=== PATIENT | female | born 1990 | race Caucasian/White ===

== ENCOUNTER 2017-03-12 19:54 | Emergency (ER) | payer MEDICARE, MEDICAID ==
[~2017-03-12] VITALS: Ht 157.5 cm; Wt 60.0 kg
[~2017-03-12 19:54] MED LIST: FOLI1CAP7 PO; FOLI1TAB16 PO; FURO-150 PO; HYDR-3965 PO; NEPHC PO; ONDA4TAB12 PO; ONDA4TAB6 PO; PANT40TA4 PO; SERT25TA PO; SEVE800T8 PO; SODI650T29 PO
[2017-03-12 20:43] LABS: BASOPHILS # (AUTO) 0.1 X10'3 (0-0.2); BASOPHILS % (AUTO) 0.8 % (0-1); EOSINOPHILS # (AUTO) 0.3 X10'3 (0-0.9); EOSINOPHILS % (AUTO) 2.4 % (0-6); HEMATOCRIT 40.4 % (35.0-45.0); HEMOGLOBIN 13.3 g/dl (12.0-16.0); LYMPHOCYTES # (AUTO) 2.3 X10'3 (1.1-4.8); LYMPHOCYTES % (AUTO) 19.5 % (21-51); MEAN CORPUSCULAR HEMOGLOBIN 32.5 PG (27.0-31.0); MEAN CORPUSCULAR VOLUME 98.5 FL (78-98); MONOCYTES # (AUTO) 0.5 X10'3 (0-0.9); MONOCYTES % (AUTO) 4.2 % (2-12); NEUTROPHILS # (AUTO) 8.6 X10'3 (1.8-7.7); NEUTROPHILS % (AUTO) 73.1 % (42-75); PLATELET COUNT 195 X10'3 (140-440); WHITE BLOOD COUNT 11.8 X10'3 (4.5-11.0)
[2017-03-12 20:44] LABS: CLARITY,URINE CLEAR (Clear); COLOR,URINE YELLOW (Yellow); GLUCOSE, URINE NEGATIVE (Neg); KETONES,URINE NEGATIVE (Neg); LEUKOCYTE ESTERASE ,URINE NEGATIVE (Neg); NITRITES, URINE NEGATIVE (Neg); OCCULT BLOOD,URINE MODERATE (Neg); PROTEIN,URINE 100 mg/dl (Neg); UROBILINOGEN,URINE 0.2 E.U/dL (0.2-1.0)
[2017-03-12 20:47] LABS: UA COLLECTION TYPE CLN CATCH MIDSTREAM
[2017-03-12 20:53] LABS: PROTHROMBIN TIME 10.3 SECONDS (9.0-12.0)
[2017-03-12 20:59] LABS: ANION GAP 14 (8-16); CHLORIDE 107 MMOL/L (99-107); GLUCOSE 90 MG/DL (70-104); POTASSIUM 4.3 MMOL/L (3.5-5.1); SODIUM 143 MMOL/L (135-145); TOTAL CARBON DIOXIDE 21.9 MMOL/L (24-32)
[2017-03-12 20:59] LABS: BACTERIA,URINE FEW /HPF (Neg); RBC,URINE 0-2 /HPF (0-2); SQUAMOUS EPITHELIAL CELL,UR FEW /LPF (FEW); WBC,URINE NONE SEEN /HPF (0-4)
[2017-03-12 21:00] LABS: ALANINE AMINOTRANSFERASE 34 U/L (12-78); ALKALINE PHOSPHATASE 125 IU/L (46-116); ASPARTATE AMINO TRANSFERASE 19 U/L (10-37); BILIRUBIN,TOTAL 0.3 MG/DL (0.1-1.0); BLOOD UREA NITROGEN 66 MG/DL (7-18); BUN/CREATININE RATIO 9.9 (6.6-38.0); CALCIUM 8.8 MG/DL (8.5-10.1); CREATININE 6.68 MG/DL (0.40-0.90); eGFR 7 ML/MIN
[2017-03-12] MEDS ORDERED: HYDR-3965 PO (21:08)
[2017-03-12] MEDS ORDERED: LORazepam 1 MG tablet PO ONE (21:15)
[2017-03-12] MEDS ORDERED: HYDROcodone/acetaminophen 5mg/325mg tablet PO ONE (21:15)
[2017-03-12] MEDS ORDERED: ONDA4TAB12 PO (22:14)
[2017-03-12] MEDS ORDERED: DICY10CA88 PO (22:14)
[2017-03-12 22:38] VITALS: BP 139/97
== END 2017-03-12 22:39 | disposition home or self-care (01) ==
LOC: ER 19:54
DX: R10.30 Lower abdominal pain, unspecified (principal); I10 Essential (primary) hypertension; Z90.49 Acquired absence of other specified parts of digestive tract; Z56.0 Unemployment, unspecified; Z98.890 Other specified postprocedural states; Z79.899 Other long term (current) drug therapy
CPT/HCPCS: 36415; 74176; 80053; 81001; 85025; 85610; 99285

== ENCOUNTER 2017-04-20 15:42 | Emergency (ER) | payer MEDICARE, MEDICAID | END 2017-04-20 16:48 | disposition left against medical advice (07) | LOC: ER 15:42 | DX: R51 Headache (principal); Z53.21 Procedure and treatment not carried out due to patient leaving prior to being seen by health care provider ==

== ENCOUNTER 2017-04-25 19:21 | Emergency (ER) | payer MEDICARE, MEDICAID ==
[~2017-04-25] VITALS: Ht 157.5 cm; Wt 61.9 kg
[2017-04-25 19:58] LABS: CLARITY,URINE SLIGHTLY CLOUDY (Clear); COLOR,URINE YELLOW (Yellow); GLUCOSE, URINE NEGATIVE (Neg); KETONES,URINE NEGATIVE (Neg); LEUKOCYTE ESTERASE ,URINE TRACE (Neg); NITRITES, URINE NEGATIVE (Neg); OCCULT BLOOD,URINE LARGE (Neg); PH,URINE 8.5 (4.8-8.0); PROTEIN,URINE >=300 mg/dl (Neg); UROBILINOGEN,URINE 0.2 E.U/dL (0.2-1.0)
[2017-04-25 19:59] LABS: URINE HCG NEGATIVE (NEG)
[2017-04-25 20:02] LABS: UA COLLECTION TYPE CLN CATCH MIDSTREAM
[2017-04-25] MEDS ORDERED: ondansetron 4mg rapidly disintigrating tab PO ONE (20:05)
[2017-04-25] MEDS ORDERED: morphine 4 MG/ML inj SYRINge IM ONE ×2 (20:05→22:00)
[2017-04-25 20:13] LABS: BASOPHILS % (AUTO) 0.5 % (0-1); EOSINOPHILS # (AUTO) 0.2 X10'3 (0-0.9); EOSINOPHILS % (AUTO) 2.2 % (0-6); HEMATOCRIT 33.1 % (35.0-45.0); HEMOGLOBIN 11.4 g/dl (12.0-16.0); LYMPHOCYTES # (AUTO) 1.9 X10'3 (1.1-4.8); LYMPHOCYTES % (AUTO) 23.4 % (21-51); MEAN CORPUSCULAR HEMOGLOBIN 32.3 PG (27.0-31.0); MEAN CORPUSCULAR HGB CONC 34.4 % (33.0-36.5); MEAN CORPUSCULAR VOLUME 93.7 FL (78-98); MEAN PLATELET VOLUME 8.1 FL (7.4-10.4); MONOCYTES # (AUTO) 0.6 X10'3 (0-0.9); MONOCYTES % (AUTO) 7.8 % (2-12); NEUTROPHILS # (AUTO) 5.4 X10'3 (1.8-7.7); NEUTROPHILS % (AUTO) 66.1 % (42-75); PLATELET COUNT 201 X10'3 (140-440); RED BLOOD COUNT 3.54 X10'6 (4.20-5.60); RED CELL DISTRIBUTION WIDTH 14.3 % (11.5-14.5); WHITE BLOOD COUNT 8.2 X10'3 (4.5-11.0)
[2017-04-25 20:17] LABS: RBC,URINE TNTC /HPF (0-2); SQUAMOUS EPITHELIAL CELL,UR MODERATE /LPF (FEW); TRIPLE PHOSPHATE CRYST 1+ /HPF (NEGATIVE)
[2017-04-25 20:18] LABS: BACTERIA,URINE FEW /HPF (Neg)
[2017-04-25 20:26] LABS: INR 0.9 INR; PROTHROMBIN TIME 9.8 SECONDS (9.0-12.0)
[2017-04-25 20:44] LABS: ALANINE AMINOTRANSFERASE 37 U/L (12-78); ALBUMIN 3.4 G/DL (3.4-5.0); ALBUMIN/GLOBULIN RATIO 0.8 (1.1-1.5); ALKALINE PHOSPHATASE 82 IU/L (46-116); ANION GAP 12 (8-16); ASPARTATE AMINO TRANSFERASE 21 U/L (10-37); BILIRUBIN,TOTAL 0.5 MG/DL (0.1-1.0); BLOOD UREA NITROGEN 32 MG/DL (7-18); CALCIUM 9.1 MG/DL (8.5-10.1); CHLORIDE 98 MMOL/L (99-107); CREATININE 6.44 MG/DL (0.40-0.90); GLUCOSE 91 MG/DL (70-104); LIPASE 187 U/L (73-393); POTASSIUM 4.1 MMOL/L (3.5-5.1); SODIUM 140 MMOL/L (135-145); TOTAL PROTEIN 7.9 G/DL (6.4-8.2); eGFR 8 ML/MIN
[2017-04-25] MEDS ORDERED: HYDROmorphone 1 mg/ml syringe IM ONE (21:40)
[2017-04-25] MEDS ORDERED: HYDR-3965 PO (21:48)
[2017-04-25] MEDS ORDERED: CEPH250T PO (21:49)
[2017-04-25 22:12] VITALS: BP 137/67
== END 2017-04-25 22:16 | disposition home or self-care (01) ==
LOC: ER 19:21
DX: N83.201 Unspecified ovarian cyst, right side (principal); N39.0 Urinary tract infection, site not specified; I10 Essential (primary) hypertension; Z98.51 Tubal ligation status; Z56.0 Unemployment, unspecified; Z79.899 Other long term (current) drug therapy
CPT/HCPCS: 36415; 74176; 76856; 80053; 81001; 81025; 83605; 83690; 85025; 85610; 87088; 96372; 99285; J2270

== ENCOUNTER 2020-08-22 21:12 | Emergency (ER) | payer MEDICAID, MEDICARE ==
[~2020-08-22] VITALS: Ht 157.5 cm; Wt 54.2 kg
[~2020-08-22 21:12] MED LIST changes: +ONDA8TAB9 PO; -PANT40TA4 PO; +PANT40TA54 PO
[2020-08-22 22:32] LABS: BASOPHILS # (AUTO) 0.1 X10'3 (0-0.2); BASOPHILS % (AUTO) 0.6 % (0-1); EOSINOPHILS # (AUTO) 0.1 X10'3 (0-0.9); EOSINOPHILS % (AUTO) 1.2 % (0-6); HEMATOCRIT 30.2 % (35.0-45.0); HEMOGLOBIN 9.9 g/dl (12.0-16.0); LYMPHOCYTES # (AUTO) 0.9 X10'3 (1.1-4.8); LYMPHOCYTES % (AUTO) 7.4 % (21-51); MEAN CORPUSCULAR HEMOGLOBIN 28.4 PG (27.0-31.0); MEAN CORPUSCULAR HGB CONC 32.9 g/dL (33.0-36.5); MEAN CORPUSCULAR VOLUME 86.5 FL (78-98); MEAN PLATELET VOLUME 8.9 FL (7.4-10.4); MONOCYTES # (AUTO) 1.5 X10'3 (0-0.9); MONOCYTES % (AUTO) 11.8 % (2-12); NEUTROPHILS # (AUTO) 9.7 X10'3 (1.8-7.7); PLATELET COUNT 252 X10'3 (140-440); RED BLOOD COUNT 3.49 X10'6 (4.20-5.60); RED CELL DISTRIBUTION WIDTH 14.7 % (11.5-14.5); WHITE BLOOD COUNT 12.3 X10'3 (4.5-11.0)
[2020-08-22 22:43] LABS: ALANINE AMINOTRANSFERASE 17 U/L (12-78); ALBUMIN/GLOBULIN RATIO 0.6 (1.1-1.5); ALKALINE PHOSPHATASE 68 IU/L (46-116); ANION GAP 6 (8-16); ASPARTATE AMINO TRANSFERASE 11 U/L (10-37); BILIRUBIN,TOTAL 1.2 MG/DL (0.1-1.0); BLOOD UREA NITROGEN 16 MG/DL (7-18); BUN/CREATININE RATIO 11.8 (6.6-38.0); CALCIUM 9.2 MG/DL (8.5-10.1); CHLORIDE 101 MMOL/L (99-107); CREATININE 1.36 MG/DL (0.40-0.90); GLUCOSE 98 MG/DL (70-104); POTASSIUM 3.9 MMOL/L (3.5-5.1); SODIUM 135 MMOL/L (135-145); TOTAL CARBON DIOXIDE 27.9 MMOL/L (24-32); TOTAL PROTEIN 7.8 G/DL (6.4-8.2); eGFR 45 ML/MIN
[2020-08-22 22:49] LABS: CLARITY,URINE CLOUDY (Clear); COLOR,URINE YELLOW (Yellow); GLUCOSE, URINE NEGATIVE (Neg); KETONES,URINE NEGATIVE (Neg); LEUKOCYTE ESTERASE ,URINE LARGE (Neg); NITRITES, URINE POSITIVE (Neg); OCCULT BLOOD,URINE TRACE-INTACT (Neg); PH,URINE 5.5 (4.8-8.0); PROTEIN,URINE NEGATIVE (Neg); UROBILINOGEN,URINE 0.2 E.U/dL (0.2-1.0)
[2020-08-22 22:53] LABS: UA COLLECTION TYPE CLN CATCH MIDSTREAM
[2020-08-22 22:57] LABS: BACTERIA,URINE 4+ /HPF (Neg); RBC,URINE 0-2 /HPF (0-2); SQUAMOUS EPITHELIAL CELL,UR MODERATE /LPF (FEW); WBC,URINE TNTC /HPF (0-4)
[2020-08-22] MEDS ORDERED: CefTRIAXone 2gm/D5W 50ml BAG 50 ML IV ONE (23:00)
[2020-08-22] MEDS ORDERED: CEPH250T PO (23:02)
[2020-08-22 23:20] VITALS: BP 112/57
== END 2020-08-22 23:21 | disposition home or self-care (01) ==
LOC: ER 21:13
DX: N39.0 Urinary tract infection, site not specified (principal); Z20.822 Contact with and (suspected) exposure to COVID-19; R53.1 Weakness; R50.9 Fever, unspecified; I10 Essential (primary) hypertension; Z98.51 Tubal ligation status; Z98.890 Other specified postprocedural states; Z56.0 Unemployment, unspecified; Z79.2 Long term (current) use of antibiotics; Z79.899 Other long term (current) drug therapy
CPT/HCPCS: 36415; 71045; 80053; 81001; 83605; 84145; 85025; 87040; 87077; 87088; 87186; 87635; 96374; 99284; C9803; J0696

== ENCOUNTER 2020-09-20 12:41 | Emergency (ER) | payer MEDICARE ==
[~2020-09-20] VITALS: Ht 157.5 cm; Wt 51.1 kg
[2020-09-20 12:48] VITALS: BP 117/73
[2020-09-20] MEDS ORDERED: CefTRIAXone 1000mg IM Kit (w/lidocaine diluent) IM STA (14:11)
[2020-09-20] MEDS ORDERED: azithromycin 250mg tablet PO ONE (14:15)
[2020-09-20] MEDS ORDERED: MET0.75G TP (14:19)
[2020-09-20] MEDS ORDERED: METR500T PO (14:19)
== END 2020-09-20 14:59 | disposition home or self-care (01) ==
LOC: ER 12:42
DX: A64 Unspecified sexually transmitted disease (principal); N76.0 Acute vaginitis; R30.0 Dysuria; I10 Essential (primary) hypertension; Z98.51 Tubal ligation status; Z98.890 Other specified postprocedural states; Z95.1 Presence of aortocoronary bypass graft; Z56.0 Unemployment, unspecified; Z79.899 Other long term (current) drug therapy; Z79.2 Long term (current) use of antibiotics
CPT/HCPCS: 36415; 86592; 87491; 87591; 96372; 99283; J0696

== ENCOUNTER 2020-10-19 12:06 | Emergency (ER) | payer MEDICARE ==
[~2020-10-19] VITALS: Ht 157.5 cm; Wt 52.7 kg
[2020-10-19 12:48] VITALS: BP 121/85
[2020-10-19 13:04] LABS: URINE HCG NEGATIVE (NEG)
[2020-10-19 13:08] LABS: CLARITY,URINE SLIGHTLY CLOUDY (Clear); COLOR,URINE STRAW (Yellow); GLUCOSE, URINE NEGATIVE (Neg); KETONES,URINE NEGATIVE (Neg); LEUKOCYTE ESTERASE ,URINE LARGE (Neg); NITRITES, URINE NEGATIVE (Neg); OCCULT BLOOD,URINE SMALL (Neg); PROTEIN,URINE 30 mg/dl (Neg); UROBILINOGEN,URINE 0.2 E.U/dL (0.2-1.0)
[2020-10-19 13:09] LABS: UA COLLECTION TYPE CLN CATCH MIDSTREAM
[2020-10-19 13:18] LABS: BACTERIA,URINE 3+ /HPF (Neg); MUCUS STRANDS FEW /LPF (Neg); RENAL CELLS, URINE FEW /HPF; SQUAMOUS EPITHELIAL CELL,UR MANY /LPF (FEW); TRICHOMONAS,URINE FEW /HPF (NEGATIVE); WBC,URINE TNTC /HPF (0-4)
[2020-10-19 14:33] LABS: BASOPHILS # (AUTO) 0.1 X10'3 (0-0.2); BASOPHILS % (AUTO) 0.7 % (0-1); EOSINOPHILS # (AUTO) 0.5 X10'3 (0-0.9); EOSINOPHILS % (AUTO) 4.9 % (0-6); HEMATOCRIT 27.3 % (35.0-45.0); LYMPHOCYTES % (AUTO) 9.1 % (21-51); MEAN CORPUSCULAR HEMOGLOBIN 28.6 PG (27.0-31.0); MEAN CORPUSCULAR HGB CONC 33.1 g/dL (33.0-36.5); MEAN CORPUSCULAR VOLUME 86.4 FL (78-98); MEAN PLATELET VOLUME 7.1 FL (7.4-10.4); MONOCYTES # (AUTO) 0.8 X10'3 (0-0.9); MONOCYTES % (AUTO) 7.2 % (2-12); NEUTROPHILS # (AUTO) 8.3 X10'3 (1.8-7.7); NEUTROPHILS % (AUTO) 78.1 % (42-75); PLATELET COUNT 311 X10'3 (140-440); RED BLOOD COUNT 3.16 X10'6 (4.20-5.60); RED CELL DISTRIBUTION WIDTH 14.8 % (11.5-14.5); WHITE BLOOD COUNT 10.7 X10'3 (4.5-11.0)
[2020-10-19 14:54] LABS: ALANINE AMINOTRANSFERASE 21 U/L (12-78); ALBUMIN/GLOBULIN RATIO 0.6 (1.1-1.5); ALKALINE PHOSPHATASE 90 IU/L (46-116); ANION GAP 10 (8-16); ASPARTATE AMINO TRANSFERASE 17 U/L (10-37); BILIRUBIN,TOTAL 0.4 MG/DL (0.1-1.0); BLOOD UREA NITROGEN 43 MG/DL (7-18); BUN/CREATININE RATIO 10.5 (6.6-38.0); CHLORIDE 107 MMOL/L (99-107); GLUCOSE 76 MG/DL (70-104); POTASSIUM 4.4 MMOL/L (3.5-5.1); SODIUM 139 MMOL/L (135-145); TOTAL CARBON DIOXIDE 22.1 MMOL/L (24-32); TOTAL PROTEIN 8.3 G/DL (6.4-8.2); eGFR 13 ML/MIN
[2020-10-19] MEDS ORDERED: CefTRIAXone 1000mg IM Kit (w/lidocaine diluent) IM STA (15:48)
[2020-10-19] MEDS ORDERED: azithromycin 250mg tablet PO ONE (15:50)
[2020-10-19] MEDS ORDERED: MET0.75G TP (15:58)
[2020-10-19] MEDS ORDERED: METR500T PO (15:58)
[2020-10-19] MEDS ORDERED: NITR100C6 PO (15:58)
[2020-10-19] MEDS ORDERED: ONDA4TAB12 PO (16:19)
== END 2020-10-19 16:30 | disposition home or self-care (01) ==
LOC: ER 12:07
DX: U07.1 COVID-19 (principal); R11.2 Nausea with vomiting, unspecified; N39.0 Urinary tract infection, site not specified; I10 Essential (primary) hypertension; N18.6 End stage renal disease; Z99.2 Dependence on renal dialysis; Z90.49 Acquired absence of other specified parts of digestive tract; Z98.51 Tubal ligation status; Z56.0 Unemployment, unspecified; Z90.5 Acquired absence of kidney
CPT/HCPCS: 36415; 80053; 81001; 81025; 85025; 87491; 87591; 87635; 96372; 99283; C9803; J0696

== ENCOUNTER 2021-01-16 08:30 | Outpatient (CLI) | payer MEDICARE ==
[~2021-01-16 08:30] MED LIST changes: +BUPR1FIL20 SL; -FOLI1CAP7 PO; -FOLI1TAB16 PO; -FURO-150 PO; -HYDR-3965 PO; +MYCO180T PO; -NEPHC PO; -ONDA4TAB12 PO; -ONDA4TAB6 PO; -ONDA8TAB9 PO; -PANT40TA54 PO; +PRED5TAB49 PO; -SERT25TA PO; -SEVE800T8 PO; -SODI650T29 PO; +TACR1CAP PO
== END 2021-01-16 23:59 | disposition home or self-care (01) ==
LOC: 64 CT 08:30
PROVIDERS: ATTEND Family Medicine
DX: N26.1 Atrophy of kidney (terminal) (principal); K59.00 Constipation, unspecified; R91.1 Solitary pulmonary nodule
CPT/HCPCS: 74176

== ENCOUNTER 2021-06-07 20:37 | Emergency (ER) | payer MEDICARE, MEDICAID ==
[~2021-06-07] VITALS: Ht 157.5 cm; Wt 53.3 kg
[2021-06-07 21:22] LABS: URINE HCG NEGATIVE (NEG)
[2021-06-07 21:32] LABS: BASOPHILS # (AUTO) 0.1 X10'3 (0-0.2); BASOPHILS % (AUTO) 0.5 % (0-1); EOSINOPHILS # (AUTO) 1.3 X10'3 (0-0.9); EOSINOPHILS % (AUTO) 11.7 % (0-6); HEMATOCRIT 32.9 % (35.0-45.0); HEMOGLOBIN 11.3 g/dl (12.0-16.0); LYMPHOCYTES # (AUTO) 0.9 X10'3 (1.1-4.8); LYMPHOCYTES % (AUTO) 8.2 % (21-51); MEAN CORPUSCULAR HEMOGLOBIN 31.1 PG (27.0-31.0); MEAN CORPUSCULAR HGB CONC 34.2 g/dL (33.0-36.5); MEAN CORPUSCULAR VOLUME 90.9 FL (78-98); MEAN PLATELET VOLUME 6.4 FL (7.4-10.4); MONOCYTES # (AUTO) 1.2 X10'3 (0-0.9); MONOCYTES % (AUTO) 10.6 % (2-12); NEUTROPHILS # (AUTO) 7.5 X10'3 (1.8-7.7); PLATELET COUNT 346 X10'3 (140-440); RED BLOOD COUNT 3.62 X10'6 (4.20-5.60); RED CELL DISTRIBUTION WIDTH 13.6 % (11.5-14.5); WHITE BLOOD COUNT 10.9 X10'3 (4.5-11.0)
[2021-06-07 21:36] LABS: CLARITY,URINE CLOUDY (Clear); COLOR,URINE RED (Yellow); UA COLLECTION TYPE CLN CATCH MIDSTREAM
[2021-06-07 21:38] LABS: BACTERIA,URINE NONE SEEN /HPF (Neg); RBC,URINE TNTC /HPF (0-2); SQUAMOUS EPITHELIAL CELL,UR FEW /LPF (FEW); WBC,URINE 0-4 /HPF (0-4)
[2021-06-07 21:43] LABS: ALANINE AMINOTRANSFERASE 26 U/L (12-78); ALBUMIN/GLOBULIN RATIO 0.5 (1.1-1.5); ALKALINE PHOSPHATASE 93 IU/L (46-116); ANION GAP 10 (8-16); ASPARTATE AMINO TRANSFERASE 20 U/L (10-37); BILIRUBIN,TOTAL 0.4 MG/DL (0.1-1.0); BLOOD UREA NITROGEN 26 MG/DL (7-18); BUN/CREATININE RATIO 8.2 (6.6-38.0); CALCIUM 9.2 MG/DL (8.5-10.1); CHLORIDE 97 MMOL/L (99-107); CREATININE 3.17 MG/DL (0.40-0.90); GLUCOSE 84 MG/DL (70-104); LIPASE 100 U/L (73-393); POTASSIUM 3.8 MMOL/L (3.5-5.1); SODIUM 142 MMOL/L (135-145); TOTAL CARBON DIOXIDE 34.6 MMOL/L (24-32); TOTAL PROTEIN 8.8 G/DL (6.4-8.2); eGFR 17 ML/MIN
[2021-06-07 21:57] VITALS: BP 88/52
== END 2021-06-07 22:04 | disposition home or self-care (01) ==
LOC: ER 20:38
DX: R10.30 Lower abdominal pain, unspecified (principal); R31.9 Hematuria, unspecified; R42 Dizziness and giddiness; I12.0 Hypertensive chronic kidney disease with stage 5 chronic kidney disease or end stage renal disease; N18.6 End stage renal disease; Z99.2 Dependence on renal dialysis; Z56.0 Unemployment, unspecified; Z95.5 Presence of coronary angioplasty implant and graft; Z90.49 Acquired absence of other specified parts of digestive tract; Z98.51 Tubal ligation status; Z79.899 Other long term (current) drug therapy
CPT/HCPCS: 36415; 80053; 81001; 81025; 83690; 85025; 99283; 99285

== ENCOUNTER 2021-06-24 11:18 | Emergency (ER) | payer MEDICARE, MEDICAID ==
[~2021-06-24] VITALS: Ht 157.5 cm; Wt 54.5 kg
[2021-06-24 14:51] LABS: CLARITY,URINE BLOODY (Clear); COLOR,URINE RED (Yellow); UA COLLECTION TYPE NON-SPECIFIED
[2021-06-24 14:54] LABS: URINE HCG NEGATIVE (NEG)
[2021-06-24 14:57] LABS: RBC,URINE TNTC /HPF (0-2); SQUAMOUS EPITHELIAL CELL,UR NONE SEEN /LPF (FEW)
[2021-06-24 14:58] LABS: BACTERIA,URINE FEW /HPF (Neg)
[2021-06-24 15:04] LABS: BASOPHILS % (AUTO) 0.2 % (0-1); EOSINOPHILS % (AUTO) 0.3 % (0-6); HEMATOCRIT 29.7 % (35.0-45.0); HEMOGLOBIN 9.1 g/dl (12.0-16.0); LYMPHOCYTES # (AUTO) 0.5 X10'3 (1.1-4.8); LYMPHOCYTES % (AUTO) 4.6 % (21-51); MEAN CORPUSCULAR HEMOGLOBIN 29.1 PG (27.0-31.0); MEAN CORPUSCULAR HGB CONC 30.7 g/dL (33.0-36.5); MEAN CORPUSCULAR VOLUME 94.8 FL (78-98); MEAN PLATELET VOLUME 7.1 FL (7.4-10.4); MONOCYTES # (AUTO) 0.7 X10'3 (0-0.9); MONOCYTES % (AUTO) 6.3 % (2-12); NEUTROPHILS # (AUTO) 9.8 X10'3 (1.8-7.7); NEUTROPHILS % (AUTO) 88.6 % (42-75); PLATELET COUNT 429 X10'3 (140-440); RED BLOOD COUNT 3.13 X10'6 (4.20-5.60); RED CELL DISTRIBUTION WIDTH 14.7 % (11.5-14.5)
[2021-06-24 15:19] LABS: ALANINE AMINOTRANSFERASE 25 U/L (12-78); ALBUMIN 2.5 G/DL (3.4-5.0); ALBUMIN/GLOBULIN RATIO 0.4 (1.1-1.5); ALKALINE PHOSPHATASE 88 IU/L (46-116); ANION GAP 10 (8-16); ASPARTATE AMINO TRANSFERASE 28 U/L (10-37); BILIRUBIN,TOTAL 0.3 MG/DL (0.1-1.0); BLOOD UREA NITROGEN 32 MG/DL (7-18); BUN/CREATININE RATIO 10.6 (6.6-38.0); CALCIUM 8.2 MG/DL (8.5-10.1); CHLORIDE 90 MMOL/L (99-107); CREATININE 3.01 MG/DL (0.40-0.90); GLUCOSE 88 MG/DL (70-104); POTASSIUM 5.2 MMOL/L (3.5-5.1); SODIUM 128 MMOL/L (135-145); TOTAL CARBON DIOXIDE 27.8 MMOL/L (24-32); TOTAL PROTEIN 8.6 G/DL (6.4-8.2); eGFR 18 ML/MIN
--- NOTE | 2021-06-24 17:54 | NUR ---
[facility] CALLED WAITING FOR CALL BACK.
[2021-06-24] MEDS ORDERED: PRED20TA PO (20:33)
[2021-06-24] MEDS ORDERED: CEPH-585 PO (20:33)
[2021-06-24] MEDS ORDERED: methylPREDNISolone sod succ 125mg/2ml vial IV ONE (20:35)
[2021-06-24] MEDS ORDERED: cephalexin 500mg capsule PO ONE (20:35)
[2021-06-24] MEDS ORDERED: dexamethasone sod phosphate 10mg/ml inj IM STA (21:28)
[2021-06-24 21:49] VITALS: BP 145/81
== END 2021-06-24 21:50 | disposition home or self-care (01) ==
LOC: ER 11:19
DX: N39.0 Urinary tract infection, site not specified (principal); R31.9 Hematuria, unspecified; I10 Essential (primary) hypertension; Z98.51 Tubal ligation status; Z98.890 Other specified postprocedural states; Z56.0 Unemployment, unspecified; Z79.2 Long term (current) use of antibiotics; Z79.899 Other long term (current) drug therapy
CPT/HCPCS: 36415; 76770; 80053; 81001; 81025; 85025; 87088; 96372; 99284; J1100

== ENCOUNTER 2021-06-25 18:38 | Inpatient (IN) | payer MEDICARE, MEDICAID ==
[~2021-06-25] VITALS: Ht 157.5 cm; Wt 54.5 kg
[~2021-06-25 18:38] MED LIST changes: +CEPH-585 PO; +PRED20TA PO
[2021-06-25] MEDS ORDERED: methylPREDNISolone sod succ 125mg/2ml vial IV ONE (19:40)
[2021-06-25 20:57] LABS: BASOPHILS % (AUTO) 0.2 % (0-1); EOSINOPHILS % (AUTO) 0 % (0-6); HEMATOCRIT 25.7 % (35.0-45.0); HEMOGLOBIN 8.3 g/dl (12.0-16.0); LYMPHOCYTES # (AUTO) 0.8 X10'3 (1.1-4.8); LYMPHOCYTES % (AUTO) 4.1 % (21-51); MEAN CORPUSCULAR HEMOGLOBIN 29.2 PG (27.0-31.0); MEAN CORPUSCULAR HGB CONC 32.1 g/dL (33.0-36.5); MEAN CORPUSCULAR VOLUME 90.9 FL (78-98); MEAN PLATELET VOLUME 6.5 FL (7.4-10.4); MONOCYTES # (AUTO) 1.5 X10'3 (0-0.9); MONOCYTES % (AUTO) 7.7 % (2-12); NEUTROPHILS # (AUTO) 16.9 X10'3 (1.8-7.7); PLATELET COUNT 565 X10'3 (140-440); RED BLOOD COUNT 2.83 X10'6 (4.20-5.60); RED CELL DISTRIBUTION WIDTH 14.2 % (11.5-14.5); WHITE BLOOD COUNT 19.2 X10'3 (4.5-11.0)
[2021-06-25 21:12] LABS: ALANINE AMINOTRANSFERASE 28 U/L (12-78); ALBUMIN 2.6 G/DL (3.4-5.0); ALBUMIN/GLOBULIN RATIO 0.5 (1.1-1.5); ALKALINE PHOSPHATASE 111 IU/L (46-116); ANION GAP 8 (8-16); ASPARTATE AMINO TRANSFERASE 16 U/L (10-37); BILIRUBIN,TOTAL 0.2 MG/DL (0.1-1.0); BLOOD UREA NITROGEN 65 MG/DL (7-18); BUN/CREATININE RATIO 13.8 (6.6-38.0); CALCIUM 9.1 MG/DL (8.5-10.1); CHLORIDE 92 MMOL/L (99-107); CREATININE 4.72 MG/DL (0.40-0.90); GLUCOSE 112 MG/DL (70-104); POTASSIUM 5.3 MMOL/L (3.5-5.1); SODIUM 134 MMOL/L (135-145); TOTAL CARBON DIOXIDE 33.8 MMOL/L (24-32); TOTAL PROTEIN 8.1 G/DL (6.4-8.2); eGFR 11 ML/MIN
[2021-06-25] MEDS ORDERED: HYDROcodone/acetaminophen 5mg/325mg tablet PO PRN (22:35)
[2021-06-25] MEDS ORDERED: HYDROcodone/acetaminophen 10/325mg tab PO PRN (22:35)
[2021-06-25] MEDS ORDERED: morphine 2 MG/ML inj. syringe IV PRN ×2 (22:35)
[2021-06-25] MEDS ORDERED: magnesium hydroxide 30ml (MOM) UD suspension PO PRN (22:35)
[2021-06-25] MEDS ORDERED: acetaminophen 325mg tablet PO PRN ×2 (22:35)
[2021-06-25] MEDS ORDERED: mag hydrox/Alum hydrox/simeth 30ml oral suspension PO PRN (22:35)
[2021-06-25] MEDS ORDERED: ondansetron/PF 4mg/2ml inj IV PRN (22:35)
[2021-06-26] VITALS (7 sets, daily range): BP systolic 88–139; BP diastolic 49–84
[2021-06-26] MEDS ORDERED: CALC667C5 PO (00:53)
[2021-06-26] MEDS ORDERED: FURO80TA3 PO (00:53)
[2021-06-26] MEDS ORDERED: FOLI1TAB34 PO (00:56)
--- NOTE | 2021-06-26 06:17 | NUR ---
Received report from Asya, RN
[2021-06-26 06:51] LABS: CLARITY,URINE CLEAR (Clear); GLUCOSE, URINE NEGATIVE (Neg); KETONES,URINE NEGATIVE (Neg); LEUKOCYTE ESTERASE ,URINE NEGATIVE (Neg); NITRITES, URINE NEGATIVE (Neg); OCCULT BLOOD,URINE SMALL (Neg); PROTEIN,URINE 30 mg/dl (Neg); UROBILINOGEN,URINE 0.2 E.U/dL (0.2-1.0)
[2021-06-26 06:53] LABS: BASOPHILS % (AUTO) 0.1 % (0-1); EOSINOPHILS % (AUTO) 0 % (0-6); HEMATOCRIT 25.7 % (35.0-45.0); HEMOGLOBIN 8.6 g/dl (12.0-16.0); LYMPHOCYTES # (AUTO) 0.6 X10'3 (1.1-4.8); LYMPHOCYTES % (AUTO) 3.8 % (21-51); MEAN CORPUSCULAR HEMOGLOBIN 30.5 PG (27.0-31.0); MEAN CORPUSCULAR HGB CONC 33.5 g/dL (33.0-36.5); MEAN CORPUSCULAR VOLUME 91.2 FL (78-98); MEAN PLATELET VOLUME 6.8 FL (7.4-10.4); MONOCYTES # (AUTO) 0.4 X10'3 (0-0.9); MONOCYTES % (AUTO) 2.3 % (2-12); NEUTROPHILS # (AUTO) 15.8 X10'3 (1.8-7.7); NEUTROPHILS % (AUTO) 93.8 % (42-75); PLATELET COUNT 580 X10'3 (140-440); RED BLOOD COUNT 2.82 X10'6 (4.20-5.60); RED CELL DISTRIBUTION WIDTH 14.3 % (11.5-14.5); WHITE BLOOD COUNT 16.8 X10'3 (4.5-11.0)
[2021-06-26 06:54] LABS: COLOR,URINE STRAW (Yellow); UA COLLECTION TYPE NON-SPECIFIED
[2021-06-26 07:00] LABS: ALBUMIN 2.4 G/DL (3.4-5.0); ANION GAP 11 (8-16); BLOOD UREA NITROGEN 79 MG/DL (7-18); BUN/CREATININE RATIO 15.1 (6.6-38.0); CHLORIDE 95 MMOL/L (99-107); CREATININE 5.22 MG/DL (0.40-0.90); GLUCOSE 135 MG/DL (70-104); POTASSIUM 5.8 MMOL/L (3.5-5.1); SODIUM 134 MMOL/L (135-145); TOTAL CARBON DIOXIDE 27.9 MMOL/L (24-32); eGFR 10 ML/MIN
[2021-06-26 07:14] LABS: SQUAMOUS EPITHELIAL CELL,UR FEW /LPF (FEW)
[2021-06-26 07:16] LABS: BACTERIA,URINE FEW /HPF (Neg); RBC,URINE 20-50 /HPF (0-2); WBC,URINE 0-4 /HPF (0-4)
--- NOTE | 2021-06-26 07:36 | NUR ---
Message: [id number], Kathie patients med rec needs addressed, she is on sublinguial suboxone at home, also was on keflex for UTI but urine i just sent does not show UTI. Thanks Dr. Kurtz! Natty [id number]
[2021-06-26] MEDS: methylPREDNISolone sod succ 125mg/2ml vial IV SCH (07:42)
[2021-06-26] MEDS: docusate sod 100mg capsule PO SCH ×2 (07:43→20:00)
[2021-06-26] MEDS: furosemide 40mg tablet PO SCH ×2 (07:47→19:58)
[2021-06-26] MEDS: calcium acetate 667mg (PhosLO) capsule PO SCH ×3 (07:47→18:05)
[2021-06-26] MEDS: folic acid/vitamin B complex w/vitamin C 0.8mg tablet PO SCH (07:48)
[2021-06-26] MEDS: buprenorphine/naloxone 8MG-2MG SUBlingual film SL SCH ×2 (09:33→19:58)
--- NOTE | 2021-06-26 11:52 | NUR ---
Message: [id number], Kathie did you want her to have a dose of keflex this morning? its not ordered to start till tonight. valeriy [id number]
[2021-06-26] MEDS ORDERED: heparin 1,000 units/ml 10ml inj IV ONE (12:00)
[2021-06-26] MEDS ORDERED: heparin 1,000unit/ml 10ml vial 10 ML IV ONE (12:00)
[2021-06-26] MEDS ORDERED: LIDOcaine 1% (10mg/ml) 2ml vial SQ ONE (12:00)
[2021-06-26] MEDS: cephalexin 500mg capsule PO ONE ×2 (12:20→15:53)
--- NOTE | 2021-06-26 12:34 | NUR ---
Put a call in to gluten settling tender to ask if they could come talk to patient before doing dialysis as she is nervous that it will cause her bad pain like it did on thursday per patient.
--- NOTE | 2021-06-26 15:17 | NUR ---
patient receiving diaylsis, keflex will be pulled off with dialysis. just now got brought to floor by pharmacy will get PM dose
[2021-06-26] MEDS ORDERED: sodium polystyrene sulfonate 15gm/60ml oral suspension PO ONE (15:25)
--- NOTE | 2021-06-26 16:04 | NUR ---
fistula infiltrated, dialysis not performed, keflex dose given and [address] jack orders
--- NOTE | 2021-06-26 16:12 | NUR ---
Message: [id number], Kathie dialysis nurse infiltrated patients fistula, K today is 5.8 do you want her on tele? Dr. Marcus ordered one time 45 gram order of kayexelate. Natty [id number]
--- NOTE | 2021-06-26 16:57 | NUR ---
Spoke to mother Pattie and gave update on patient status.
--- NOTE | 2021-06-26 18:25 | NUR ---
Gave report to CRISTINA Santos
[2021-06-26] MEDS ORDERED: buprenorphine/naloxone 8MG-2MG SUBlingual film SL SCH (20:00)
[2021-06-26] MEDS: cephalexin 500mg capsule PO SCH (20:00)
[2021-06-27 06:00] VITALS: BP 99/51
--- NOTE | 2021-06-27 06:30 | NUR ---
Problems reprioritized. Patient report given, questions answered & plan of care reviewed with Kathya EVANS.
[2021-06-27 06:32] LABS: BASOPHILS % (AUTO) 0.1 % (0-1); EOSINOPHILS % (AUTO) 0.1 % (0-6); HEMATOCRIT 26.1 % (35.0-45.0); HEMOGLOBIN 8.4 g/dl (12.0-16.0); LYMPHOCYTES # (AUTO) 0.9 X10'3 (1.1-4.8); LYMPHOCYTES % (AUTO) 4.8 % (21-51); MEAN CORPUSCULAR HEMOGLOBIN 30.2 PG (27.0-31.0); MEAN CORPUSCULAR HGB CONC 32.3 g/dL (33.0-36.5); MEAN CORPUSCULAR VOLUME 93.3 FL (78-98); MEAN PLATELET VOLUME 6.9 FL (7.4-10.4); MONOCYTES # (AUTO) 1.5 X10'3 (0-0.9); MONOCYTES % (AUTO) 7.8 % (2-12); NEUTROPHILS # (AUTO) 16.3 X10'3 (1.8-7.7); NEUTROPHILS % (AUTO) 87.2 % (42-75); PLATELET COUNT 531 X10'3 (140-440); RED BLOOD COUNT 2.79 X10'6 (4.20-5.60); RED CELL DISTRIBUTION WIDTH 14.5 % (11.5-14.5); WHITE BLOOD COUNT 18.7 X10'3 (4.5-11.0)
--- NOTE | 2021-06-27 06:39 | NUR ---
Patient in room [facility] 4020. I have received report from Danielle EVANS and had the opportunity to ask questions and assume patient care.
[2021-06-27 06:55] LABS: ALBUMIN 2.1 G/DL (3.4-5.0); ANION GAP 14 (8-16); BLOOD UREA NITROGEN 104 MG/DL (7-18); BUN/CREATININE RATIO 17.1 (6.6-38.0); CALCIUM 8.5 MG/DL (8.5-10.1); CHLORIDE 97 MMOL/L (99-107); CREATININE 6.07 MG/DL (0.40-0.90); GLUCOSE 151 MG/DL (70-104); MAGNESIUM 2.7 MG/DL (1.5-2.4); PHOSPHORUS 6.7 MG/DL (2.3-4.5); POTASSIUM 4.5 MMOL/L (3.5-5.1); SODIUM 138 MMOL/L (135-145); TOTAL CARBON DIOXIDE 27.3 MMOL/L (24-32); eGFR 8 ML/MIN
[2021-06-27] MEDS ORDERED: heparin 1,000unit/ml 10ml vial 10 ML IV ONE (07:35)
[2021-06-27] MEDS ORDERED: heparin 1,000 units/ml 10ml inj IV ONE (07:35)
[2021-06-27] MEDS ORDERED: albumin (human) 25% 100ml IV 100 ML IV PRN (07:35)
[2021-06-27] MEDS: folic acid/vitamin B complex w/vitamin C 0.8mg tablet PO SCH (07:48)
[2021-06-27] MEDS: calcium acetate 667mg (PhosLO) capsule PO SCH ×2 (07:50→13:00)
[2021-06-27] MEDS: buprenorphine/naloxone 8MG-2MG SUBlingual film SL SCH (07:50)
[2021-06-27] MEDS: cephalexin 500mg capsule PO SCH (07:50)
[2021-06-27] MEDS: methylPREDNISolone sod succ 125mg/2ml vial IV SCH (07:55)
[2021-06-27] MEDS: docusate sod 100mg capsule PO SCH (07:59)
[2021-06-27] MEDS: furosemide 40mg tablet PO SCH (07:59)
[2021-06-27 10:00] VITALS: BP 93/43
[2021-06-27] MEDS ORDERED: LIDOcaine 1% (10mg/ml) 2ml vial SQ ONE (12:20)
[2021-06-27] MEDS ORDERED: PRED20TA PO (14:19)
[2021-06-28] MEDS ORDERED: prednisone 10mg tablet PO SCH (08:00)
== END 2021-06-27 17:15 | disposition home or self-care (01) | DRG 698 ==
LOC: ER 18:39 → ED HOLD 22:34 → ORTHO 4S 23:45
PROVIDERS: ADMIT Internal Medicine; ATTEND Family Medicine
PROC: 5A1D70Z Performance of Urinary Filtration, Intermittent, Less than 6 Hours Per Day (ICD-10-PCS; principal; 2021-06-26)
PROC: 5A1D70Z Performance of Urinary Filtration, Intermittent, Less than 6 Hours Per Day (ICD-10-PCS; 2021-06-27)
DX: T86.11 Kidney transplant rejection (principal); N18.6 End stage renal disease; N39.0 Urinary tract infection, site not specified; I12.0 Hypertensive chronic kidney disease with stage 5 chronic kidney disease or end stage renal disease; T86.12 Kidney transplant failure; G89.4 Chronic pain syndrome; R31.9 Hematuria, unspecified; E87.5 Hyperkalemia; Z99.2 Dependence on renal dialysis; Z56.0 Unemployment, unspecified; Z90.49 Acquired absence of other specified parts of digestive tract; Z98.51 Tubal ligation status; Z79.899 Other long term (current) drug therapy
CPT/HCPCS: 36415; 76770; 80048; 80053; 81001; 81025; 83735; 84100; 85025; 87081; 87088; 96372; 96374; 99284; 99285; G0257; G0378; J1100; J1644; J2930; J3490

== ENCOUNTER 2021-09-26 17:50 | Emergency (ER) | payer MEDICARE, MEDICAID ==
[~2021-09-26] VITALS: Ht 157.5 cm; Wt 54.5 kg
[~2021-09-26 17:50] MED LIST changes: +CALC667C5 PO; -CEPH-585 PO; +FOLI1TAB34 PO; +FURO80TA3 PO; -MYCO180T PO; -PRED20TA PO; -PRED5TAB49 PO; -TACR1CAP PO
[2021-09-26 17:57] VITALS: BP 152/98
[2021-09-26] MEDS ORDERED: DOXYCYCLINE 100MG CAPSULE PO STA (18:25)
[2021-09-26] MEDS ORDERED: DOXY100C76 PO (18:52)
== END 2021-09-26 19:09 | disposition home or self-care (01) ==
LOC: ER 17:50
DX: L03.116 Cellulitis of left lower limb (principal); I10 Essential (primary) hypertension; Z90.49 Acquired absence of other specified parts of digestive tract; Z79.899 Other long term (current) drug therapy; Z87.448 Personal history of other diseases of urinary system; Z56.0 Unemployment, unspecified
CPT/HCPCS: 73630; 99284